=== PATIENT | male | born 1975 | race Caucasian/White ===

== ENCOUNTER → 2017-06-29 | Outpatient (REF) | payer BC ==
[~2017-06-29] MED LIST: CENT1TAB2 PO; FLUTISP; OMEP40CA2 PO; RANI15TA PO; SALI0.6523
[2017-06-29 15:52] LABS: BASO # 0.1 K/mm3 (0.0-0.2); BASO % 1.2 % (0.0-1.0); EOS # 0.4 K/mm3 (0.0-0.50); EOS % 7.3 % (0.0-3.0); LARGE UNSTAINED CELL # 0.1 K/mm3 (0.0-0.4); LARGE UNSTAINED CELL % 2.1 % (0.0-4.0); LYMPH # 1.4 K/mm3 (1.5-4.5); LYMPH % 25.3 % (24.0-44.0); MEAN CORPUSCULAR HEMOGLOBIN 31.7 pg (27.0-33.0); MEAN CORPUSCULAR HGB CONC 35.8 g/dl (32.0-36.5); MEAN CORPUSCULAR VOLUME 88.6 fl (80.0-96.0); MONO # 0.5 K/mm3 (0.0-0.8); MONO % 8.4 % (0.0-5.0); NEUTROPHILS % 55.6 % (36.0-66.0); PLATELET COUNT, AUTOMATED 237 k/mm3 (150-450); RED CELL DISTRIBUTION WIDTH 12.2 % (11.5-14.5); WHITE BLOOD COUNT 5.4 K/mm3 (4.0-10.0)
== END ==
LOC: M LABDRWAD 15:12
PROVIDERS: ATTEND Physician Assistant Medical
DX: E29.1 Testicular hypofunction (principal)
CPT/HCPCS: 84402; 84403; 85025; G0103

== ENCOUNTER → 2017-08-15 | Outpatient (REF) | payer BC | LOC: M LAB REF 13:42 | PROVIDERS: ATTEND Physician Assistant Medical | DX: E29.1 Testicular hypofunction (principal) ==

== ENCOUNTER → 2017-09-26 | Outpatient (REF) | payer BC | LOC: M LAB REF 12:33 | PROVIDERS: ATTEND Physician Assistant Medical | DX: J02.9 Acute pharyngitis, unspecified (principal) ==

== ENCOUNTER 2018-02-27 23:09 | Emergency (ER) | payer BC ==
[2018-02-28] MEDS ORDERED: LIDOCAINE 1% MDV 20ML VIAL As Ordered (00:43)
[2018-02-28] MEDS: LIDOCAINE 1% MDV 20ML VIAL IM (00:45)
[2018-02-28] MEDS ORDERED: MORPHINE 4 MG/ML 1ML VIAL/SYRINGE (J2270) As Ordered (01:01)
[2018-02-28] MEDS: MORPHINE 4 MG/ML 1ML VIAL/SYRINGE (J2270) IV ×3 (01:06→01:45)
[2018-02-28 01:08] LABS: ETHYL ALCOHOL (ETHANOL) 0.162 % (0.000-0.010)
[2018-02-28] MEDS: OXYCODONE/APAP 5MG/325MG(BULK FOR ED) 1 TABLET PO (02:03)
== END 2018-02-28 02:20 | disposition home or self-care (01) ==
LOC: M ED 23:09
DX: S82.62XA Displaced fracture of lateral malleolus of left fibula, initial encounter for closed fracture (principal); W19.XXXA Unspecified fall, initial encounter; Y92.511 Restaurant or cafe as the place of occurrence of the external cause; F10.929 Alcohol use, unspecified with intoxication, unspecified; F32.9 Major depressive disorder, single episode, unspecified; K21.9 Gastro-esophageal reflux disease without esophagitis; Z79.899 Other long term (current) drug therapy
CPT/HCPCS: J2270

== ENCOUNTER 2018-03-14 09:51 | Day surgery (SDC) | payer BC ==
[2018-03-14] MEDS ORDERED: ROPIvacaine 0.5% 30 ML INJECTION (J2795 PER 1MG) (09:52)
[2018-03-14] MEDS ORDERED: EPINEPHrine INJ 1 MG/ML 1ML AMP (09:52)
[2018-03-14] MEDS: LR 1,000 ML IV (10:10)
[2018-03-14] MEDS ORDERED: ROCURONIUM BROMIDE 50 MG/5 ML VIAL As Ordered ×2 (10:20→12:23)
[2018-03-14] MEDS ORDERED: PROPOFOL 200 MG/20 ML VIAL As Ordered (10:20)
[2018-03-14] MEDS ORDERED: LIDOCAINE 2% INJ 100 MG/5 ML SDV (FOR ANES.) As Ordered ×2 (10:20→14:25)
[2018-03-14] MEDS ORDERED: fentaNYL 100 MCG/2 ML INJECTION (J3010) As Ordered ×5 (11:11→17:10)
[2018-03-14] MEDS ORDERED: MIDAZOLAM INJ 2 MG/2 ML VIAL (J2250) As Ordered ×2 (11:11→11:31)
[2018-03-14] MEDS: MIDAZOLAM INJ 2 MG/2 ML VIAL (J2250) IV ×3 (11:46→12:12)
[2018-03-14] MEDS: fentaNYL 100 MCG/2 ML INJECTION (J3010) IV ×2 (11:46→11:50)
[2018-03-14] MEDS ORDERED: dexameTHASONE 4 MG/ML 1ML VIAL (J1100) As Ordered ×2 (12:15)
[2018-03-14] MEDS ORDERED: ONDANSETRON 4MG/2ML VIAL (J2405) As Ordered (12:16)
[2018-03-14] MEDS ORDERED: LABETALOL HCL 100 MG/20 ML VIAL As Ordered (14:23)
[2018-03-14] MEDS: ceFAZolin 2 GM/D5W 50 ML IV BAG (J0690 PER 500MG) As Ordered (16:38)
[2018-03-14] MEDS ORDERED: LR 1,000 ML IV ×2 (17:30→17:45)
[2018-03-14] MEDS ORDERED: oxyCODONE 5MG TAB PO (17:30)
[2018-03-14] MEDS ORDERED: ONDANSETRON 4MG/2ML VIAL (J2405) IV (17:45)
[2018-03-14] MEDS ORDERED: PERCOCET 5MG/325MG TAB PO (17:45)
[2018-03-14] MEDS ORDERED: fentaNYL 100 MCG/2 ML INJECTION (J3010) IV (17:45)
[2018-03-14] MEDS: oxyCODONE 5MG TAB PO (17:48)
== END 2018-03-14 19:00 | disposition home or self-care (01) ==
LOC: M SDC 09:51
DX: S82.842A Displaced bimalleolar fracture of left lower leg, initial encounter for closed fracture (principal); W07.XXXA Fall from chair, initial encounter; Y93.89 Activity, other specified; Y92.89 Other specified places as the place of occurrence of the external cause; Y99.8 Other external cause status; R03.0 Elevated blood-pressure reading, without diagnosis of hypertension; K21.9 Gastro-esophageal reflux disease without esophagitis; F32.9 Major depressive disorder, single episode, unspecified; R06.83 Snoring; Z79.899 Other long term (current) drug therapy; Z72.0 Tobacco use
CPT/HCPCS: 27814

== ENCOUNTER → 2018-07-09 | Outpatient (CLI) | payer BC ==
[2018-07-09 13:25] LABS: BASO # 0.1 10^3/uL (0.0-0.2); BASO % 0.9 % (0.0-1.0); EOS # 0.2 10^3/uL (0.0-0.50); EOS % 4.6 % (0.0-3.0); HEMATOCRIT 42.1 % (42.0-52.0); HEMOGLOBIN 15.4 g/dl (13.5-17.5); IMMATURE GRANULOCYTE % 1.1 % (0-3.0); LYMPH % 19.2 % (24.0-44.0); MEAN CORPUSCULAR HEMOGLOBIN 30.9 pg (27.0-33.0); MEAN CORPUSCULAR HGB CONC 36.6 g/dl (32.0-36.5); MEAN CORPUSCULAR VOLUME 84.4 fl (80.0-96.0); MONO # 1.3 10^3/uL (0.0-0.8); MONO % 24.7 % (0.0-5.0); NEUTROPHILS # 2.6 10^3/uL (1.8-7.7); NEUTROPHILS % 49.5 % (36.0-66.0); PLATELET COUNT, AUTOMATED 194 10^3/uL (150-450); RED BLOOD COUNT 4.99 10^6/uL (4.30-6.10); RED CELL DISTRIBUTION WIDTH 12.1 % (11.5-14.5); WHITE BLOOD COUNT 5.3 10^3/uL (4.0-10.0)
[2018-07-10 01:11] LABS: ALBUMIN 3.5 GM/DL (3.2-5.2); ALBUMIN/GLOBULIN RATIO 1.03 (1.00-1.93); ALKALINE PHOSPHATASE 100 U/L (45-117); ALT/SGPT 27 U/L (12-78); ANION GAP 7 MEQ/L (8-16); AST/SGOT 22 U/L (7-37); BILIRUBIN,TOTAL 0.7 MG/DL (0.2-1.0); BLOOD UREA NITROGEN 17 MG/DL (7-18); CALCIUM LEVEL 8.6 MG/DL (8.5-10.1); CARBON DIOXIDE LEVEL 27 MEQ/L (21-32); CHLORIDE LEVEL 103 MEQ/L (98-107); CREATININE FOR GFR 1.17 MG/DL (0.70-1.30); GLOMERULAR FILTRATION RATE > 60.0 (>60); GLUCOSE, FASTING 98 MG/DL (70-100); POTASSIUM SERUM 3.4 MEQ/L (3.5-5.1); SODIUM LEVEL 137 MEQ/L (136-145); TOTAL PROTEIN 6.9 GM/DL (6.4-8.2)
== END ==
LOC: M LAB 12:39
DX: R19.7 Diarrhea, unspecified (principal)
CPT/HCPCS: 80053

== ENCOUNTER → 2019-10-09 | Outpatient (CLI) | payer BC ==
[~2019-10-09] MED LIST changes: +FLUT50SP17; -FLUTISP; -OMEP40CA2 PO; +OMEP40CA97 PO; +PERC5TAB12 PO; +PROZ20CA11 PO; -SALI0.6523; +SALI0.6528
--- NOTE | 2019-10-09 13:46 | REP ---
Five views lumbar spine: 10/09/2019. Indication: Low back pain. Comparison: None. Findings: There is no acute fracture, subluxation or dislocation. There is minimal retrolisthesis of L4-L5. Disc space narrowing is present throughout most pronounced at L5/S1. No acute paraspinal soft tissue abnormalities are detected. Impression: No acute osseous injury of the lumbar spine. Degenerative disc settling and spurring are present at L4/L5 and L5/S1. Electronically Signed by Teddy Donovan DO 10/09/2019 01:38 P
== END ==
LOC: M WUC 11:04
PROVIDERS: ATTEND Physician Assistant
DX: M54.5 Low back pain (principal)

== ENCOUNTER → 2019-11-01 | Outpatient (CLI) | payer BC ==
--- NOTE | 2019-11-01 12:50 | REP ---
MRI lumbar spine: 11/01/2019. Indication: Low back pain. Comparison: None. Technique: Multiplanar short and long TR sequences of the lumbar spine were performed. Findings: Lumbar vertebral body alignment is within anatomical limits. Disc desiccation and disc space narrowing are present at L3/L4, L4/L5 and L5/S1 as well as the rudimentary S1/S2 disc. 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 No worrisome marrow or cord signal abnormalities are present. No significant paraspinal soft tissue abnormalities are detected. L1/L2 and L2/L3: Unremarkable. L3/L4: Diffuse disc bulge and mild left facet arthropathy are present with mild to moderate recess and bilateral neural foraminal narrowing. L4/L5: Diffuse disc bulge and bilateral facet arthropathy are present more pronounced on the right with mild to moderate bilateral recess and moderate bilateral neural foraminal narrowing. L5/S1: There is a right paracentral/foraminal disc protrusion superimposed on a diffuse disc bulge with bilateral facet arthropathy. There is moderate to severe right and moderate left recess narrowing. Moderate bilateral neural foraminal narrowing is present. S1/S2: There is no focal disc herniation or significant spinal canal / neural foraminal narrowing. Impression: Transitional lumbosacral segment with partial lumbarization of S1. Any future procedures/surgeries should correlate with plain film radiography accordingly. Right paracentral/foraminal L5/S1 disc herniation as described. Additional degenerative and congenital abnormalities of the lumbar spine as described. Electronically Signed by Teddy Donovan DO 11/01/2019 12:41 P
== END ==
LOC: M PLARAD 10:36
PROVIDERS: ATTEND Orthopaedic Surgery
DX: M47.896 Other spondylosis, lumbar region (principal)

== ENCOUNTER 2020-08-30 10:10 | Emergency (ER) | payer BC, OTHER, SELFPAY ==
[~2020-08-30] VITALS: Ht 177.8 cm; Wt 80.4 kg
[2020-08-30] MEDS ORDERED: BOOSTRIX/ADACEL VACCINE (DIPHTH/PERTUSS/ACELL/TETANUS) 0.5ML SYR IM ONE (10:30)
[2020-08-30] MEDS ORDERED: LIDOCAINE 2% MDV 20ML VIAL SC ONE (11:30)
[2020-08-30 11:53] VITALS: BP 138/90
== END 2020-08-30 11:54 | disposition home or self-care (01) ==
LOC: M ED 10:10
DX: S01.511A Laceration without foreign body of lip, initial encounter (principal); W22.8XXA Striking against or struck by other objects, initial encounter; Y92.098 Other place in other non-institutional residence as the place of occurrence of the external cause; I10 Essential (primary) hypertension; K21.9 Gastro-esophageal reflux disease without esophagitis; F32.9 Major depressive disorder, single episode, unspecified